=== PATIENT | male | born 1955 | race Caucasian/White ===

== ENCOUNTER 2017-03-15 04:53 | Inpatient (IN) | payer BC, OTHER ==
[2017-03-15] MEDS ORDERED: IPRATROPIUM/ALBUTEROL 3 ML VIAL NEB ONE (05:06)
--- NOTE | 2017-03-15 05:18 | ED.PDOC ---
History of Present Illness - General Chief Complaint: Respiratory Problem Stated Complaint: short of breath, wheezing Time Seen by Provider: 03/15/17 05:08 Source: patient, RN notes reviewed, Vital Signs reviewed Exam Limitations: no limitations - History of Present Illness Initial Comments: Patient comes in with c/o SOB X 4 days. He has been using his sisters Albuterol and has run out of medication. No fever or chills. No chest pain. Dry cough. He had a similar episode in September that resolved on its own after ~3 days. No history of asthma or similar symptoms. His is a smoker. On arrival he was wheezing with O2 sat of 87% so was given a Duo-neb with some improvement. Timing/Duration: days - 4 Severity: moderate Activities at Onset: none Possible Cause: unknown cause, other - One prior episode Improving Factors: medication - Albuterol Worsening Factors: nothing Associated Symptoms: anxiety, cough, wheezing Respiratory Risk Factors: no cause identified Allergies/Adverse Reactions: Allergies NO KNOWN ALLERGY Allergy (Verified 03/15/17 04:58) Home Medications: Ambulatory Orders Lisinopril & Hydrochlorothiazi [Lisinopril/Hctz 20-12.5 mg] 1 tab PO DAILY 03/15 Tramadol HCl 50 mg PO Q4HR PRN 03/15/17 Review of Systems - Review of Systems Constitutional: Denies: chills, diaphoresis, fever, malaise EENTM: States: no symptoms reported Respiratory: States: cough, short of breath, wheezing. Denies: orthopnea, stridor Cardiology: States: no symptoms reported. Denies: chest pain, palpitations Gastrointestinal/Abdominal: States: no symptoms reported. Denies: nausea, vomiting Musculoskeletal: States: no symptoms reported Skin: States: no symptoms reported Neurological: States: no symptoms reported All other Systems: No Change from Baseline Past Medical History (General) - Patient Medical History Hx Seizures: No Hx Stroke: No Hx Dementia: No Hx Asthma: No Hx of COPD: No Hx Cardiac Disorders: No Hx Congestive Heart Failure: No Hx Pacemaker: No Hx Hypertension: Yes Hx Thyroid Disease: No Hx Diabetes: No Hx Gastroesophageal Reflux: No Hx Renal Disease: No Surgical History: no surgical history - Vaccination History Hx Tetanus, Diphtheria Vaccination: No Hx Influenza Vaccination: No Hx Pneumococcal Vaccination: No - Social History Hx Tobacco Use: Yes Hx Alcohol Use: Yes Family Medical History - Family History Mother Family History: Unknown Physical Exam - Physical Exam General Appearance: Alert, Anxious, Restless, Well Hydrated, Well Nourished Neck: non-tender, full range of motion, supple, normal inspection Respiratory: no accessory muscle use, decreased breath sounds - thoughout, wheezing, expiration Cardiovascular/Chest: no gallop, no murmur, tachycardia Extremity: normal range of motion, normal inspection, no pedal edema Neurologic: alert, normal mood/affect, oriented x 3 Skin Exam: diaphoresis Comments: Vital Signs - 24 hr 03/15/17 04:59 Temperature 96.9 F L Pulse Rate [ 109 H left] Respiratory 24 Rate Blood Pressure 148/97 [left] O2 Sat by Pulse 87 L Oximetry Progress - Progress Progress: 03/15/17 06:18 Patient reports he is feeling better but he is still visibly SOB with poor air movement and wheezing. Still stop O2 and see what his oxygen saturation does. 03/15/17 06:26 O2 sat dropped to 88% so placed back on 2L O2 by nasal canula Spoke with Val Borden NP - will admit to hospital for aggressive pulmonary treatment. - Results/Orders Results/Orders: Laboratory Tests 03/15/17 03/15/17 05:14 05:14 WBC 12.6 H RBC 5.56 Hgb 15.9 Hct 46.3 MCV 83.3 MCH 28.5 MCHC 34.3 RDW 13.5 Plt Count 245 MPV 9.5 Absolute Neuts (auto) 6.80 Absolute Lymphs (auto) 3.50 H Absolute Monos (auto) 0.90 H Absolute Eos (auto) 1.20 H Absolute Basos (auto) 0.10 Neutrophils % 54.6 Lymphocytes % 28.2 Monocytes % 7.4 Eosinophils % 9.3 H Basophils % 0.5 Sodium 136 Potassium 3.7 Chloride 100 L Carbon Dioxide 24 Anion Gap 15.7 BUN 12 Creatinine 0.85 BUN/Creatinine Ratio 14.1 Random Glucose 144 H Serum Osmolality 274.2 L Calcium 9.4 Total Bilirubin 1.6 H AST 28 ALT 31 Alkaline Phosphatase 63 B-Natriuretic Peptide 16.4 Serum Total Protein 7.8 Albumin 4.3 Globulin 3.5 Albumin/Globulin Ratio 1.2 - EKG/XRAY/CT EKG: Sinus, Tachy, RBBB, no ST T wave changes XRAY: chest - No acute process per Radiologist Departure - Departure Clinical Impression: Shortness of breath, Hypoxia Time of Disposition: 06:33 Disposition: Admit Patient Condition: Fair Departure Forms: ED Discharge - Pt. Copy, Patient Portal Self Enrollment Home Medications: Ambulatory Orders Lisinopril & Hydrochlorothiazi [Lisinopril/Hctz 20-12.5 mg] 1 tab PO DAILY 03/15 Tramadol HCl 50 mg PO Q4HR PRN 03/15/17 Decision To Admit - Decistion To Admit Decision to Admit Reason: Admit from ER Decision to Admit Date: 03/15/17 Decision to Admit Time: 06:29
[2017-03-15] MEDS ORDERED: methylPREDNISolone SODIUM SUC 125 MG/2 ML VIAL IM ONE (05:55)
[2017-03-15] MEDS ORDERED: LEVALBUTEROL NEBS 1.25 MG/3 ML VIAL NEB ONE ×2 (05:55→08:37)
--- NOTE | 2017-03-15 05:58 | RAD ---
Procedure: XR CHEST 2 VIEWS Exam Date: 03/15/2017 Ordering Provider: Dasha Garcia Clinical Indication: SOB Comparison: None Findings: Cardiac silhouette: Normal Pulmonary vasculature : Unremarkable Mediastinal contour: Normal Aortic contour: Tortuous Focal lung consolidation: No focal lung consolidation. There are 3 well-circumscribed round densities projecting over the left hemidiaphragm. These are not appreciated on the lateral view and may be external to the patient, correlate clinically. Pleural effusion: None Pneumothorax: None Acute bony or soft tissue abnormality: None Impression: 1. No acute abnormalities in the chest. 2. There are 3 well-circumscribed round densities projecting over the left hemidiaphragm. These are not appreciated on the lateral view and may be external to the patient, correlate clinically. Electronically signed by: Preston Lucero MD 03/15/2017 5:57 AM CDT
[2017-03-15] MEDS ORDERED: methylPREDNISolone SODIUM SUC 125 MG/2 ML VIAL IV ONE (05:59)
--- NOTE | 2017-03-15 09:04 | HP ---
SUPERVISING PHYSICIAN: Asa Webster MD CHIEF COMPLAINT: "I'm unable to breathe." HISTORY OF PRESENT ILLNESS: This is a 61-year-old, male patient who lives in [place], but he works in [employer]. He has an 86 pack year cigarette smoking history. He presented to the Emergency Room this morning after three to four days of extreme shortness of breath with difficulty breathing. Back in September , he had a bout of bronchitis that took him about a week to get over with some shortness of breath at that time. He was treated and had no further problems until about six weeks ago when he had another bout of bronchitis and difficulty breathing. He had just about gotten over that until this past Friday when it had gotten to the point where his shortness of breath had gotten so bad that he visited his sister who gave him her albuterol nebulizers treatments. He actually was doing nebulizer treatments about every 2 hours as well as taking pain pills to get any relief from the shortness of breath. He continued to smoke until Friday and he has not had a cigarette since that time due to difficulty breathing. This morning, he only had one albuterol treatment left and he became so short of breath that he and his came to the Emergency Room. On admission to the Emergency Room, his oxygen saturations were reported at 83% on room air. He was given a DuoNeb treatment and he some slight improvement with an O2 saturation of 87%. He then became quite dyspneic again and received another breathing treatment. Even with supplemental oxygen, his O2 sats only got up to 88%. In the Emergency Room, his white count was 12,600, hemoglobin 15.9, hematocrit 46.3. Chemistries were basically within normal limits with the exception that his chloride was 100. Glucose 144, bilirubin 1.6. I was called for hospital admission. PAST MEDICAL HISTORY: 1. Hypertension. 2. Acid reflux. 3. ETOH abuse. 4. Tobacco abuse. PAST SURGICAL HISTORY: 1. Cyst removal of his left leg. OUTPATIENT MEDICATIONS: Per the EMR and awaiting verification. ALLERGIES: NO KNOWN DRUG ALLERGIES. SOCIAL HISTORY: He is . He works for [employer]. He is a two-pack a day smoker for 43 years. He drinks Scotch. He has 7 to 10 drinks every 2 to 3 days. He denies any illicit drug use. REVIEW OF SYSTEMS: GENERAL: Positive for fatigue. Negative for fever or weight changes. HEENT: Positive for some sinus symptoms and sneezing. Positive for ear pain due to allergies. Negative for vision changes or sore throat. RESPIRATORY: As per history of present illness. CARDIAC: Denies chest pain, palpitations or tachycardia. GASTROINTESTINAL: Denies nausea, vomiting, diarrhea, constipation. GENITOURINARY: Denies hematuria, dysuria or polyuria. NEUROLOGIC: Denies headache, dizziness, or seizures. SKIN: Denies lesions or rashes. PHYSICAL EXAMINATION: VITAL SIGNS: Afebrile. Heart rate 99. Blood pressure 128/86. Respiratory rate 24. O2 saturation 89 to 90% on 2 liters nasal cannula. GENERAL: This is a 61-year-old male patient who is lying in his hospital bed. He is dyspneic, but in no acute distress. HEENT: Normocephalic, atraumatic. Pupils are equal and reactive. Oropharynx is clear. NECK: Supple without mass. RESPIRATORY: Bilateral diffuse expiratory wheezing throughout, somewhat diminished at the bases. CARDIOVASCULAR: Regular rate and rhythm. ABDOMEN: Rounded, obese. It is soft, nontender. Bowel sounds are positive. EXTREMITIES: No cyanosis, clubbing or edema. SKIN: No lesions or rashes. It is warm and dry. LABORATORY: Labs are as per the history of present illness. Chest x-ray per radiologic interpretation shows: 1. No acute abnormalities in the chest. 2. There are three well-circumscribed round densities projecting over the left hemidiaphragm. They are not appreciated in the lateral view and may be external to the patient. All other labs and films have been reviewed via the EMR. ASSESSMENT: 1. Chronic obstructive pulmonary disease with an acute exacerbation with an 86 pack year tobacco use. 2. Hypertension. 3. Acid reflux. 4. ETOH abuse. 5. Tobacco abuse. 6. Elevated blood sugars. PLAN: We will admit the patient to the hospital. We will start him on scheduled DuoNebs as well as putting him on p.r.n. albuterol treatments. We will need pulmonary function test as well as ambulation study tomorrow. We discussed at length smoking cessation and he is encouraged to do so. I will start him on some Anoro LABA/LAMA. Tomorrow he will need to go home on that and I will give him some samples. He is receiving high dose steroids, so I will put him on sliding insulin to cover for his elevated blood sugars. I will also check a hemoglobin A1c to make sure his blood sugars are in control. He had refused nicotine patch at this time as well as his Librium, but those have been started if he needs them. His home medications have been re-started. I have also bronchial hygiene and percussion. We will continue to monitor the patient closely and followup as needed. Dr. Webster is the collaborating physician and available for consultation. #[id number] [facility]
[2017-03-15] MEDS ORDERED: ALBUTEROL SULFATE 2.5 MG/3 ML VIAL NEB PRN (10:05)
[2017-03-15] MEDS ORDERED: HYDROcodone 5MG/APAP 325MG 1 EA TAB PO PRN (10:05)
[2017-03-15] MEDS ORDERED: ONDANSETRON INJ 4 MG/2 ML VIAL IV PRN (10:05)
[2017-03-15] MEDS ORDERED: IV SET AND CAP CHANGE INJ INJ SCH (10:30)
[2017-03-15] MEDS ORDERED: cefTRIAXone SODIUM 1 GM VIAL ONE ×2 (11:02→20:23)
[2017-03-15] MEDS ORDERED: SODIUM CHL 0.9% 50ML MIN-BAG+ 50 ML IVPB ONE ×2 (11:02→20:23)
[2017-03-15] MEDS: cefTRIAXone SODIUM 1 GM in SODIUM CHL 0.9% 50ML MIN-BAG+ 50 ML IVPB SCH ×2 (11:11→22:03)
[2017-03-15] MEDS: PANTOPRAZOLE SODIUM IV 40 MG VIAL IV SCH (11:16)
[2017-03-15] MEDS: ENOXAPARIN SODIUM 40 MG/0.4 ML SYG SUBCU SCH (11:16)
[2017-03-15] MEDS: chlordiazePOXIDE HCL 5 MG CAP PO SCH ×2 (11:17→21:12)
[2017-03-15] MEDS: NICOTINE PATCH 21 MG TD SCH (11:21)
[2017-03-15] MEDS ORDERED: SODIUM CHLORIDE 0.9% 250ML 0 ML ONE (12:20)
[2017-03-15] MEDS ORDERED: AZITHROMYCIN IV 500 MG VIAL IVPB ONE ×2 (12:21→12:42)
[2017-03-15] MEDS ORDERED: SODIUM CHLORIDE 0.9% 250ML 250 ML ONE (12:42)
[2017-03-15] MEDS: IPRATROPIUM/ALBUTEROL 3 ML VIAL NEB SCH ×3 (12:56→19:40)
[2017-03-15] MEDS: methylPREDNISolone SODIUM SUC 125 MG/2 ML VIAL IV SCH ×2 (12:59→18:00)
[2017-03-15] MEDS ORDERED: NON-FORMULARY MEDICATION 1 EA MIS (Lisinopril & Hydrochlorothiazi [Lisinopril/Hctz 20-12.5 PO SCH (13:00)
[2017-03-15] MEDS: AZITHROMYCIN IV 500 MG in SODIUM CHLORIDE 0.9% 250ML 250 ML IVPB SCH (13:03)
[2017-03-15] MEDS ORDERED: GLUCAGON INJ 1 MG VIAL SUBCU PRN (13:53)
[2017-03-15] MEDS ORDERED: DEXTROSE 50% 25 GM/50 ML SYG IV PRN (13:53)
[2017-03-15] MEDS: LISINOPRIL 10 MG TAB PO SCH (14:41)
[2017-03-15] MEDS: hydroCHLOROthiazide 12.5 MG CAP PO SCH (14:41)
[2017-03-15] MEDS: INSULIN LISPRO 100 UNITS/ML PEN SUBCU SCH ×2 (16:30→22:02)
--- NOTE | 2017-03-15 19:28 | PCM.CORE ---
Physician DVT/VTE - Prophylaxis Currently: Patient already on anticoagulation therapy - Nurse DVT Assessment & Total Each Risk Factor Represents 2 Points: Age 60-74 Each Risk Factor Represents 1 Point: Medical PT at Bed Rest Each Risk Factor is 1 Point: Obesity (BMI >25), Serious Lung disease (pnemonia < 1month, COPD, emphysema,etc) DVT Assessment Score: 5 - 5 or more Very High Risk Treatments: Early Ambulation *, Sequential Compression Device
[2017-03-15] MEDS: SODIUM CHLORIDE 0.9% (FLUSH) 10 ML SYG IV SCH (21:20)
[2017-03-15] MEDS: SODIUM CHLORIDE 0.9% (FLUSH) 10 ML SYG IV PRN (22:03)
[2017-03-16] MEDS: methylPREDNISolone SODIUM SUC 125 MG/2 ML VIAL IV SCH ×4 (00:01→22:00)
[2017-03-16] MEDS: PANTOPRAZOLE SODIUM IV 40 MG VIAL IV SCH (06:07)
[2017-03-16] MEDS: SODIUM CHLORIDE 0.9% (FLUSH) 10 ML SYG IV PRN ×3 (06:07→22:00)
--- NOTE | 2017-03-16 07:32 | RAD ---
Clinical History : copd , MAIN Exam : PA and lateral views of the chest 03/16/2017 12:00 AM CDT Comparisons : PA and lateral views of the chest March 15, 2017 Findings : The lungs are clear without focal consolidation or pleural effusion. The heart is normal in size. The mediastinal contours are normal in appearance. The thoracic spine is age appropriate. The shoulders are unremarkable. Limited evaluation of the upper abdomen demonstrates no gross abnormalities. Impression: No acute cardiopulmonary disease (stable appearing chest). Electronically signed by: Savage Jean MD 03/16/2017 7:30 AM CDT
[2017-03-16] MEDS: NICOTINE PATCH 21 MG TD SCH ×2 (08:07→08:08)
[2017-03-16] MEDS: INSULIN LISPRO 100 UNITS/ML PEN SUBCU SCH ×4 (08:07→21:24)
[2017-03-16] MEDS: LISINOPRIL 10 MG TAB PO SCH (08:07)
[2017-03-16] MEDS: ENOXAPARIN SODIUM 40 MG/0.4 ML SYG SUBCU SCH (08:07)
[2017-03-16] MEDS: chlordiazePOXIDE HCL 5 MG CAP PO SCH ×3 (08:08→21:30)
[2017-03-16] MEDS: SODIUM CHLORIDE 0.9% (FLUSH) 10 ML SYG IV SCH ×2 (08:08→21:25)
[2017-03-16] MEDS: hydroCHLOROthiazide 12.5 MG CAP PO SCH (08:08)
[2017-03-16] MEDS: IPRATROPIUM/ALBUTEROL 3 ML VIAL NEB SCH ×4 (08:40→19:45)
[2017-03-16] MEDS ORDERED: NON-FORMULARY RESPIRATORY MEDICATION INH SCH (09:30)
[2017-03-16] MEDS ORDERED: SODIUM CHL 0.9% 50ML MIN-BAG+ 50 ML IVPB ONE ×2 (11:49→19:22)
[2017-03-16] MEDS ORDERED: cefTRIAXone SODIUM 1 GM VIAL ONE ×2 (11:49→19:23)
[2017-03-16] MEDS: metFORMIN XR 500 MG TAB.ER.24 PO SCH ×2 (11:52→18:12)
[2017-03-16] MEDS: cefTRIAXone SODIUM 1 GM in SODIUM CHL 0.9% 50ML MIN-BAG+ 50 ML IVPB SCH ×2 (11:52→21:25)
--- NOTE | 2017-03-16 12:30 | PN ---
SUPERVISING PHYSICIAN: Tip Hernandez MD DATE: 03/16/17 SUBJECTIVE: The patient is sitting up in his hospital bed talking to family. He says he feels much better than yesterday, although he still does have some shortness of breath and coughing. He denies chest pain, abdominal pain, nausea or vomiting. OBJECTIVE: VITAL SIGNS: He is afebrile. Heart rate runs from 94 to 111. Blood pressure is 137/73. Respiratory rate 20 to 24. 02 saturation has dropped as low as 89 on 2 liters nasal cannula and runs most of the time around 91 to 92%. RESPIRATORY: Expiratory wheezes at the bases, more prominent in the left lower lung lane, otherwise scattered rhonchi throughout. CARDIAC: Regular rate and rhythm. ABDOMEN: Soft, nondistended, non-tender, Bowel sounds are positive. EXTREMITIES: No cyanosis, clubbing, or edema. NEUROLOGICAL: He is awake, alert, and oriented x3. LABORATORY: WBCs have elevated to 24,200. Hemoglobin and hematocrit is stable at 14.9 and 43.8. Sodium 135, potassium 3.7, chloride 100, BUN 14, creatinine 0.8, glucose remaining between 144 and 195. [id number] is 6.8. Preliminary sputum culture shows normal sonali at 24 hours. His preliminary blood culture showed no growth after 24 hours. Chest x-ray per radiology interpretation shows no acute cardiopulmonary disease. All other labs and films have been reviewed via the EMR. ASSESSMENT: 1. Chronic obstructive pulmonary disease with acute exacerbation in a patient with an 86-pack year of tobacco use. 2. New onset diabetes mellitus type 2 with hemoglobin A1C of 6.8. 3. Hypertension. 4. Acid reflux. 5. ETOH abuse.\ 6. Tobacco abuse. 7. Elevated blood sugars. PLAN: We will continue present supportive care. We have ordered labs for in the morning. He will continue on sliding scale insulin and I have put him on Glucophage XR 500 b.i.d. He has started his Anoro LABA/LAMA. He will need to continue that at discharge. I have titrated down his steroids. I have also ordered an ambulation study as well as a pulmonary function test for tomorrow. We have discussed some diabetic teaching and he has expressed interest in getting a primary care physician at [facility] so on Friday we will try to get that paperwork initiated. Otherwise, we will continue to monitor the patient closely and followup as needed. Dr. Hernandez is the collaborating physician available for consultation. #[id number] [facility]
[2017-03-16] MEDS ORDERED: SODIUM CHLORIDE 0.9% 250ML 250 ML ONE (13:51)
[2017-03-16] MEDS ORDERED: AZITHROMYCIN IV 500 MG VIAL IVPB ONE (13:52)
[2017-03-16] MEDS ORDERED: methylPREDNISolone SODIUM SUC 125 MG/2 ML VIAL ONE (13:52)
[2017-03-16] MEDS: AZITHROMYCIN IV 500 MG in SODIUM CHLORIDE 0.9% 250ML 250 ML IVPB SCH (13:55)
[2017-03-17] MEDS: SODIUM CHLORIDE 0.9% (FLUSH) 10 ML SYG IV PRN ×2 (05:58→10:00)
[2017-03-17] MEDS: methylPREDNISolone SODIUM SUC 125 MG/2 ML VIAL IV SCH (05:59)
[2017-03-17] MEDS: PANTOPRAZOLE SODIUM IV 40 MG VIAL IV SCH (06:00)
[2017-03-17] MEDS: INSULIN LISPRO 100 UNITS/ML PEN SUBCU SCH ×4 (07:45→21:30)
[2017-03-17] MEDS: metFORMIN XR 500 MG TAB.ER.24 PO SCH ×2 (07:48→17:39)
[2017-03-17] MEDS ORDERED: NON-FORMULARY RESPIRATORY MEDICATION INH SCH (08:00)
[2017-03-17] MEDS: IPRATROPIUM/ALBUTEROL 3 ML VIAL NEB SCH ×4 (08:19→20:00)
[2017-03-17] MEDS: hydroCHLOROthiazide 12.5 MG CAP PO SCH (08:36)
[2017-03-17] MEDS: SODIUM CHLORIDE 0.9% (FLUSH) 10 ML SYG IV SCH ×2 (08:37→21:27)
[2017-03-17] MEDS: NICOTINE PATCH 21 MG TD SCH (08:37)
[2017-03-17] MEDS: LISINOPRIL 10 MG TAB PO SCH (08:37)
[2017-03-17] MEDS: chlordiazePOXIDE HCL 5 MG CAP PO SCH ×2 (08:37→21:27)
[2017-03-17] MEDS: ENOXAPARIN SODIUM 40 MG/0.4 ML SYG SUBCU SCH (08:37)
[2017-03-17] MEDS ORDERED: cefTRIAXone SODIUM 1 GM VIAL ONE ×2 (09:47→20:08)
[2017-03-17] MEDS ORDERED: AZITHROMYCIN IV 500 MG VIAL IVPB ONE (09:47)
[2017-03-17] MEDS ORDERED: SODIUM CHLORIDE 0.9% 250ML 250 ML ONE (09:47)
[2017-03-17] MEDS ORDERED: SODIUM CHL 0.9% 50ML MIN-BAG+ 50 ML IVPB ONE ×2 (09:47→20:07)
[2017-03-17] MEDS: cefTRIAXone SODIUM 1 GM in SODIUM CHL 0.9% 50ML MIN-BAG+ 50 ML IVPB SCH ×2 (09:59→21:30)
[2017-03-17] MEDS: AZITHROMYCIN IV 500 MG in SODIUM CHLORIDE 0.9% 250ML 250 ML IVPB SCH (12:15)
--- NOTE | 2017-03-17 15:14 | PN ---
SUPERVISING PHYSICIAN: Tip Hernandez MD DATE: 03/17/17 SUBJECTIVE: The patient continues to show slow clinical improvement. He says he is having much less shortness of breath. He continues with a cough. He has had no chest pains, nausea, vomiting or diarrhea. She has been improving in his ambulation and has remained afebrile. OBJECTIVE: VITAL SIGNS: Temperature 97.6. Pulse 85. Blood pressure 116/77. Respirations 16. Saturation 92% on nasal cannula at rest on 1 liter. I&Os show positive balance of 447 with 872 in, 425 out. Weight 120.1 kg. CHEST: Lungs remain diminished towards the bases, but no obvious rhonchi or wheezing is noted today. HEART: Regular rate and rhythm. ABDOMEN: Soft, nontender. Positive bowel sounds. EXTREMITIES: No cyanosis, clubbing or edema. NEUROLOGIC: Alert and oriented times three. LABORATORY: Continues to show leukocytosis on CBC, although improved down to 18.7 with differential continuing to show a left shift. Platelet count 236, 000. Hemoglobin and hematocrit stable. Chemistries show normal electrolytes with potassium 3.9, BUN 18, creatinine 0.81. Glucoses have ranged from 188 to 239. Liver functions within normal limits. MICROBIOLOGY: Sputum culture preliminary shows a gram negative nicolasa. He had two sets of blood cultures that remain negative at 48 hours. RADIOLOGY: No chest x-ray repeated today. ASSESSMENT: 1. Chronic obstructive pulmonary disease with acute exacerbation in a patient with an 86-pack year of tobacco use with sputum show gram negative nicolasa preliminary with sensitivity pending. 2. New onset diabetes mellitus, type 2, with hemoglobin A1C of 6.8. 3. Hypertension. 4. Gastroesophageal reflux disease. 5. Alcohol abuse. 6. Tobacco abuse. 7. Continued elevated blood sugars as noted on #2, contributed to by ongoing steroid administration. PLAN: The patient remains on Glucophage b.i.d. as well as sliding scale. We will continue to monitor glucoses closely as he continues to be on corticosteroids. We will taper his corticosteroids today with anticipation of possible discharge tomorrow on p.o. steroids as well as continued antibiotic therapy. He remains on Anoro, which will be continued at discharge. We will continue monitor ambulation studies as well as pulmonary function tests as those become available. We will anticipate discharge tomorrow with him needing close clinical followup with his primary care provider with the patient at some point wishing to transition from his primary care provider of [facility] to [facility] as he wishes to have paperwork started to establish with the clinic with a primary care provider in [place]. Until discharge, we will continue to monitor the patient closely and treat appropriately. #[id number] [facility]
[2017-03-17] MEDS: methylPREDNISolone SODIUM SUC 40 MG/ML VIAL IV SCH (21:37)
[2017-03-18] MEDS ORDERED: PANTOPRAZOLE SODIUM TAB 40 MG PO SCH (06:30)
--- NOTE | 2017-03-18 07:16 | RAD ---
Procedure: XR CHEST 2 VIEWS Exam Date: 03/18/2017 Ordering Provider: Marcial Barrett NP Clinical Indication: pneumonia Comparison: 03/16/2017 Findings: Cardiac silhouette: Normal Pulmonary vasculature : Unremarkable Mediastinal contour: Normal Aortic contour: Tortuous Focal lung consolidation: Subsegmental atelectasis and/or infiltrate in the lingula. Lungs are otherwise clear. Pleural effusion: None Pneumothorax: None Acute bony or soft tissue abnormality: None Impression: 1. Subsegmental atelectasis and/or infiltrate in the lingula. Lungs are otherwise clear. Electronically signed by: Preston Lucero MD 03/18/2017 7:15 AM CDT
[2017-03-18 07:56] VITALS: BP 142/87; TEMP 96; O2SAT 96
[2017-03-18] MEDS: INSULIN LISPRO 100 UNITS/ML PEN SUBCU SCH (07:58)
[2017-03-18] MEDS: metFORMIN XR 500 MG TAB.ER.24 PO SCH (08:07)
[2017-03-18] MEDS: NICOTINE PATCH 21 MG TD SCH (09:16)
[2017-03-18] MEDS: chlordiazePOXIDE HCL 5 MG CAP PO SCH (09:17)
[2017-03-18] MEDS: IPRATROPIUM/ALBUTEROL 3 ML VIAL NEB SCH (09:21)
[2017-03-18] MEDS: ENOXAPARIN SODIUM 40 MG/0.4 ML SYG SUBCU SCH (09:21)
[2017-03-18] MEDS: methylPREDNISolone SODIUM SUC 40 MG/ML VIAL IV SCH (09:23)
[2017-03-18] MEDS: hydroCHLOROthiazide 12.5 MG CAP PO SCH (09:23)
[2017-03-18] MEDS: LISINOPRIL 10 MG TAB PO SCH (09:23)
--- NOTE | 2017-03-23 12:42 | DS ---
SUPERVISING PHYSICIAN: Tip Hernandez MD DISCHARGE DIAGNOSIS: 1. Chronic obstructive pulmonary disease with acute exacerbation in a patient with an 86-pack year of tobacco use with sputum showing final culture results with an Enterobacter cloaca sensitive to everything except Cefazolin. 2. New onset diabetes mellitus, type 2, with hemoglobin A1C of 6.8. 3. Hypertension. 4. Gastroesophageal reflux disease. 5. Alcohol abuse. 6. Tobacco abuse. 7. Elevated blood sugars contributing to #2 and exacerbated by ongoing steroid administration. HISTORY OF PRESENT ILLNESS: This is a 61-year-old male patient who resides in [place] but he works in [place], [place]. He has an 86 pack year cigarette smoking history. He presented to the Emergency Room on the morning of admission after having three to four days of extreme shortness of breath with difficulty breathing. Back in September he had a bout of bronchitis that took him about a week to get over with some severe shortness of breath. He was treated and had no further problems until about six weeks previous when he had another episode of bronchitis with some difficulty breathing. He had just about gotten over that until the Friday prior to admission when it had gotten to the point where his shortness of breath had gotten so bad that he visited his sister who gave him her albuterol nebulizers treatments. He actually was doing nebulizer treatments about every 2 hours as well as taking his pain pills to get relief from the shortness of breath. He continued to smoke until Friday prior to admission and he has not had a cigarette since that time due to difficulty breathing. On the morning of admission he only had only one albuterol treatment left and he had became so short of breath that his came to the Emergency Room. On admission to the Emergency Room, his oxygen saturations were reported at 83% on room air. He was given a DuoNeb treatments and had some slight improvement with an O2 saturation of 87%. He then became quite dyspneic again and received another treatment. Even with supplemental oxygen, his O2 saturation only improved up to 88%. In the Emergency Room, his white count was 12,600, hemoglobin 15.9, hematocrit 46.3. Chemistries were basically within normal limits with the exception that his chloride was 100. Glucose 144, bilirubin 1.6. The patient was then admitted to the medical/surgical floor for further treatment and evaluation. LABORATORY STUDIES: Initial white count did show leukocytosis of 12.6. He did increase to a maximum of 24.2 and at discharge was back down to 12.1 with patient having been on high-dose steroids through admission. His hemoglobin and hematocrit were stable and at discharge was 14.5 and 43.1, platelet count as well was 213,000. Differential did show a left shift which was slowly resolving at time of discharge. Chemistries at time of admission showed electrolytes to be within normal limits with potassium of 3.7, glucose 144 initially, calcium 9.4, total bilirubin was slightly elevated at 1.6. All other liver functions are within normal limits. His BNP was 16.4. Through admission his electrolytes stayed within normal limits and at discharge potassium was 4.2. Carbon dioxide was 24 , BUN 20, creatinine 0.85. Glucoses ranged from 128 to 239. Hemoglobin A1C was 6.8, magnesium was normal at 2.3. Bilirubin had normalized prior to discharge was down 0.6. MICROBIOLOGY: Shows no growth after 5 days. We do have a sputum culture that showed a final culture result of Enterobacter cloacae sensitive to everything but Cefazolin. RADIOLOGY: Initially in the Emergency Department, chest x-ray showed no acute abnormalities in the chest. There was note of 3 well-circumscribed round densities projecting over the left hemidiaphragm, although not appreciated on the lateral view which was explained to the patient. EKG in the Emergency Department prior to admission and per interpretation showed sinus tachycardia with an incomplete right bundle branch block with a rate of 103. No comparisons were available. Final chest x-ray on discharge to date showed subsegmental atelectasis and/or infiltrate in the lingula, otherwise lungs are clear. He did have one chest x-ray on 03/16/17 that indicated per radiology interpretation a stable appearing chest. HOSPITAL COURSE: Mr. Rivera was admitted as noted in the history of present illness for acute exacerbation of bronchitis with concerns for pneumonia, although x-ray was never fully appreciated for consolidation. He did have a sputum that grew a gram negative nicolasa as noted above. On admission, he was initiated on Solu-Medrol 125 mg which was continued to slow taper until he was discharged to continue with p.o. prednisone. He was also provided nicotine patch and encouraged to stop smoking. He was initiated on antibiotic therapy to include Rocephin and azithromycin. He was also started on Duoneb treatments and aggressive bronchial hygiene and on date of discharge he was felt clinically well enough to be discharged to continue outpatient antibiotic therapy and close clinical followup with his primary care physician. PLAN: Mr. Rivera was discharged on 03/18/17 with instructions to have close clinical followup with his primary care physician in [place], Levy Kwabena Keyes, as scheduled. He is to resume his home medications as directed and start new prescriptions as directed. He was encouraged to stop smoking and drinking. He was told to return to the hospital should his condition not improve or should he have any other concerns or symptoms. At discharge his new prescriptions included: 1. Albuterol nebs 2.5 mg every 4 hours as needed, #30. 2. Azithromycin 250 mg x2 days daily. 3. Cefdinir 300 mg twice a day, #14. 4. Metformin 500 mg twice a day, #30. 5. Medrol Dosepak tapered dose, 1 pack, 4 mg as directed. 6. Protonix 40 mg daily, #30. 7. Anoro Ellipta 62.5 mg 25 mcg per inhaled, one area to inhale daily one pack. DISCHARGE DIET: [employer] Turkish diet 1800 calories. ACTIVITY: Increase as tolerated. CONDITION AT DISCHARGE: Stable, improved. #[id number] MTDD
== END 2017-03-18 10:25 | disposition home or self-care (01) | DRG 192 ==
LOC: ER 04:53 → OBSVTOIN 09:03 → MS 09:03
PROVIDERS: ADMIT Nurse Practitioner Acute Care; ATTEND Nurse Practitioner Family
DX: J44.1 Chronic obstructive pulmonary disease with (acute) exacerbation (principal); R09.02 Hypoxemia; I10 Essential (primary) hypertension; K21.9 Gastro-esophageal reflux disease without esophagitis; F10.10 Alcohol abuse, uncomplicated; F41.9 Anxiety disorder, unspecified; E11.65 Type 2 diabetes mellitus with hyperglycemia; T38.0X5A Adverse effect of glucocorticoids and synthetic analogues, initial encounter; E66.9 Obesity, unspecified; F17.210 Nicotine dependence, cigarettes, uncomplicated; Z68.36 Body mass index [BMI] 36.0-36.9, adult; Y92.230 Patient room in hospital as the place of occurrence of the external cause; Z79.899 Other long term (current) drug therapy; B95.2 Enterococcus as the cause of diseases classified elsewhere